=== PATIENT | female | born 1930 | race Caucasian/White ===

== ENCOUNTER 2019-02-26 10:25 | Inpatient (IN) ==
[2019-02-26 11:21] LABS: Basophils # 0.1 10*3/uL (0.0-0.2); Basophils % 0.4 % (0.0-0.8); Eosinophils % 0.1 % (0.00-10.9); Hemoglobin 11.8 GM/DL (12.0-16.0); Immature Granulocytes % 2.4 %; Immature Granulocytes Absolute 0.44 #; Lymphocytes % 11.1 % (21.3-54.2); Mean Corpuscular HGB Conc 30.3 GM/DL (32-36); Mean Corpuscular Volume 101.3 FL (87-102); Mean Platelet Volume 10.4 FL (9.6-12.0); Platelet Count 334 T/CUMM (130-400); Red Blood Count 3.85 MC/CUMM (3.8-5.5); White Blood Count 18.1 T/CUMM (4-12)
[2019-02-26 11:37] LABS: Alanine Aminotransferase 41 U/L (13-56); Albumin 2.2 G/DL (3.4-5.0); Alkaline Phosphatase 107 U/L (45-117); Aspartate Amino Transferase 83 U/L (0-37); Bilirubin,Total < 0.39 MG/DL (0.2-1.0); Blood Urea Nitrogen 31 MG/DL (7-18); Calcium 8.3 MG/DL (8.5-10.1); Glucose 118 MG/DL (74-106); Total Protein 6.6 G/DL (6.4-8.3)
[2019-02-26] MEDS ORDERED: SODIUM CHLORIDE 0.9% 1,000 ML IV STA (12:24)
[2019-02-26] MEDS ORDERED: cefTRIAXone 1,000 MG in SODIUM CHLORIDE 0.9% 100 ML IV STA (12:26)
[2019-02-26] MEDS ORDERED: DOCUSATE SODIUM 100 MG CAPSULE PO PRN (14:31)
[2019-02-26] MEDS ORDERED: ACETAMINOPHEN 325 MG TABLET PO PRN (14:31)
[2019-02-26] MEDS ORDERED: ONDANSETRON 4 MG/2 ML VIAL IV PRN (14:31)
[2019-02-26 14:33] LABS: Apearance,Urine CLEAR (Clear); Bilirubin,Urine Negative (Negative); Blood, Urine Small mg/dL (Negative); Glucose,Urine (UA) Negative (Negative); Ketones,Urine 20 mg/dL (Negative); Mucus,Urine Occasional /LPF (Occasional); Nitrite,Urine Negative (Negative); Protein,Urine 30 MG/DL; RBC,Urine 9 /HPF (0-4); Squamous Epithelial Cell,Urine Occasional /HPF (0-10); Urine Color Yellow (Yellow); Urine Specific Gravity 1.017 (1.001-1.035); Urine Urobilinogen < 2.0 EU/DL (0.2-1.0); WBC,Urine 3 /HPF (0-6)
[2019-02-26] MEDS ORDERED: ALBUTEROL/IPRATROPIUM 3 ML NEB RESP TX PRN (15:54)
[2019-02-26] MEDS: PIPERACILLIN/TAZOBACTAM 3,375 MG in SODIUM CHLORIDE 0.9% 100 ML IV SCH (18:37)
[2019-02-26] MEDS: DEXTROSE 5% NACL 0.9% 1,000 ML IV SCH (18:37)
[2019-02-26] MEDS: ENOXAPARIN 30 MG/0.3 ML SYRINGE SUBCUT SCH (18:37)
[2019-02-26] MEDS ORDERED: traZODone 50 MG TABLET PO PRN (21:00)
[2019-02-27] MEDS: PIPERACILLIN/TAZOBACTAM 3,375 MG in SODIUM CHLORIDE 0.9% 100 ML IV SCH ×3 (01:20→16:12)
[2019-02-27 05:09] LABS: Basophils # 0.1 10*3/uL (0.0-0.2); Basophils % 0.3 % (0.0-0.8); Eosinophils # 0.1 10*3/uL (0.0-0.87); Eosinophils % 0.4 % (0.00-10.9); Hematocrit 33.8 VOL% (35.7-47.0); Hemoglobin 10.3 GM/DL (12.0-16.0); Immature Granulocytes % 2.6 %; Immature Granulocytes Absolute 0.45 #; Lymphocytes % 11.5 % (21.3-54.2); Mean Corpuscular HGB Conc 30.5 GM/DL (32-36); Mean Corpuscular Volume 99.7 FL (87-102); Mean Platelet Volume 10.5 FL (9.6-12.0); Monocytes % 5.9 % (1.7-12.7); Neutrophils % 79.3 % (38.7-73.9); Platelet Count 336 T/CUMM (130-400); Red Blood Count 3.39 MC/CUMM (3.8-5.5); Red Cell Distribution Width 15.9 % (9.3-17.3); White Blood Count 17.1 T/CUMM (4-12)
[2019-02-27 05:53] LABS: Calcium 8.4 MG/DL (8.5-10.1); Thyroid Stimulating Hormone 0.211 uIU/ml (0.358-3.74)
[2019-02-27] MEDS ORDERED: ACEBUTOLOL 400 MG CAPSULE PO SCH (09:00)
[2019-02-27] MEDS: MAGNESIUM OXIDE 400 MG TABLET PO SCH ×2 (09:58→21:20)
[2019-02-27] MEDS: DICYCLOMINE 10 MG CAPSULE PO SCH ×3 (09:58→21:20)
[2019-02-27] MEDS: CLOPIDOGREL 75 MG TABLET PO SCH (10:04)
[2019-02-27] MEDS: MEMANTINE 10 MG TABLET PO SCH ×2 (10:04→21:20)
[2019-02-27] MEDS: PANTOPRAZOLE 40 MG TABLET PO SCH (10:04)
[2019-02-27] MEDS: DEXTROSE 5% 1,000 ML IV SCH (12:41)
[2019-02-27] MEDS: DEXTROSE 5% NACL 0.9% 1,000 ML IV SCH ×2 (12:46→12:52)
[2019-02-27] MEDS: ACEBUTOLOL 200 MG CAPSULE PO SCH (16:12)
[2019-02-27] MEDS: ENOXAPARIN 30 MG/0.3 ML SYRINGE SUBCUT SCH (16:12)
[2019-02-27] MEDS: LISINOPRIL 20 MG TABLET PO SCH (21:20)
[2019-02-27] MEDS: DONEPEZIL 10 MG TABLET PO SCH (21:20)
[2019-02-28] MEDS: PIPERACILLIN/TAZOBACTAM 3,375 MG in SODIUM CHLORIDE 0.9% 100 ML IV SCH ×3 (00:52→17:29)
[2019-02-28 04:55] LABS: Basophils # 0.1 10*3/uL (0.0-0.2); Basophils % 0.5 % (0.0-0.8); Eosinophils # 0.3 10*3/uL (0.0-0.87); Hematocrit 31.5 VOL% (35.7-47.0); Hemoglobin 9.5 GM/DL (12.0-16.0); Immature Granulocytes % 2.9 %; Immature Granulocytes Absolute 0.38 #; Lymphocytes # 2.1 10*3/uL (1.4-4.0); Lymphocytes % 15.6 % (21.3-54.2); Mean Corpuscular HGB Conc 30.2 GM/DL (32-36); Mean Corpuscular Volume 99.7 FL (87-102); Mean Platelet Volume 10.2 FL (9.6-12.0); Monocytes % 5.8 % (1.7-12.7); Neutrophils % 73.2 % (38.7-73.9); Platelet Count 312 T/CUMM (130-400); Red Blood Count 3.16 MC/CUMM (3.8-5.5); Red Cell Distribution Width 15.8 % (9.3-17.3); White Blood Count 13.2 T/CUMM (4-12)
[2019-02-28 05:24] LABS: Calcium 7.8 MG/DL (8.5-10.1); Free T4 (Free Thyroxine) 1.13 NG/DL (0.76-1.46); Osmolality,Calculated 288.7 MOS/KG (273-304)
[2019-02-28] MEDS: ACEBUTOLOL 200 MG CAPSULE PO SCH ×2 (05:46→18:09)
[2019-02-28] MEDS: DEXTROSE 5% 1,000 ML IV SCH (06:22)
[2019-02-28] MEDS: amLODIPine 5 MG TABLET PO SCH (08:59)
[2019-02-28] MEDS: MEMANTINE 10 MG TABLET PO SCH ×2 (08:59→20:45)
[2019-02-28] MEDS: DICYCLOMINE 10 MG CAPSULE PO SCH ×3 (08:59→20:45)
[2019-02-28] MEDS: MAGNESIUM OXIDE 400 MG TABLET PO SCH ×2 (08:59→20:45)
[2019-02-28] MEDS: CLOPIDOGREL 75 MG TABLET PO SCH (08:59)
[2019-02-28] MEDS: LORATADINE 10 MG TABLET PO SCH (08:59)
[2019-02-28] MEDS: PANTOPRAZOLE 40 MG TABLET PO SCH (09:00)
[2019-02-28] MEDS: DEXTROSE 5% NACL 0.45% 1,000 ML IV SCH (14:24)
[2019-02-28] MEDS: POTASSIUM CHLORIDE 20 MEQ TABLET PO PRN ×4 (14:24→20:45)
[2019-02-28] MEDS: ENOXAPARIN 30 MG/0.3 ML SYRINGE SUBCUT SCH (14:24)
[2019-02-28] MEDS: DONEPEZIL 10 MG TABLET PO SCH (20:45)
[2019-02-28] MEDS: LISINOPRIL 20 MG TABLET PO SCH (20:45)
[2019-03-01] MEDS: PIPERACILLIN/TAZOBACTAM 3,375 MG in SODIUM CHLORIDE 0.9% 100 ML IV SCH ×2 (00:56→10:30)
[2019-03-01 02:47] LABS: Basophils # 0.1 10*3/uL (0.0-0.2); Basophils % 0.5 % (0.0-0.8); Eosinophils # 0.3 10*3/uL (0.0-0.87); Eosinophils % 3.5 % (0.00-10.9); Hematocrit 30.2 VOL% (35.7-47.0); Hemoglobin 9.5 GM/DL (12.0-16.0); Immature Granulocytes % 3.6 %; Immature Granulocytes Absolute 0.35 #; Lymphocytes # 2.2 10*3/uL (1.4-4.0); Lymphocytes % 22.2 % (21.3-54.2); Mean Corpuscular HGB Conc 31.5 GM/DL (32-36); Mean Corpuscular Volume 98.4 FL (87-102); Mean Platelet Volume 10.4 FL (9.6-12.0); Monocytes % 7.5 % (1.7-12.7); Neutrophils % 62.7 % (38.7-73.9); Platelet Count 303 T/CUMM (130-400); Red Blood Count 3.07 MC/CUMM (3.8-5.5); Red Cell Distribution Width 15.6 % (9.3-17.3); White Blood Count 9.8 T/CUMM (4-12)
[2019-03-01 02:56] LABS: Calcium 7.6 MG/DL (8.5-10.1)
[2019-03-01 03:15] LABS: Band Neutrophils 4 % (0-10); Eosinophils 2 % (0-10); Lymphocytes 23 % (20-55); Segmented Neutrophils 63 % (50-85); Total Cells Counted 100
[2019-03-01 03:16] LABS: Anisocytosis 1+; Hypochromasia 1+; Platelet Estimate Normal
[2019-03-01] MEDS: ACEBUTOLOL 200 MG CAPSULE PO SCH ×2 (05:36→16:00)
[2019-03-01] MEDS: DEXTROSE 5% NACL 0.45% 1,000 ML IV SCH (09:22)
[2019-03-01] MEDS: LORATADINE 10 MG TABLET PO SCH (10:30)
[2019-03-01] MEDS: DICYCLOMINE 10 MG CAPSULE PO SCH ×3 (10:30→22:09)
[2019-03-01] MEDS: MAGNESIUM OXIDE 400 MG TABLET PO SCH ×2 (10:30→22:09)
[2019-03-01] MEDS: MEMANTINE 10 MG TABLET PO SCH ×2 (10:30→22:10)
[2019-03-01] MEDS: amLODIPine 5 MG TABLET PO SCH (10:30)
[2019-03-01] MEDS: PANTOPRAZOLE 40 MG TABLET PO SCH (10:30)
[2019-03-01] MEDS: CLOPIDOGREL 75 MG TABLET PO SCH (10:30)
[2019-03-01] MEDS: ENOXAPARIN 30 MG/0.3 ML SYRINGE SUBCUT SCH (15:57)
[2019-03-01] MEDS ORDERED: MIRTAZAPINE 15 MG TABLET PO SCH (21:00)
[2019-03-01] MEDS: AMOXICILLIN/CLAV 500 MG TABLET PO SCH (22:09)
[2019-03-01] MEDS: DONEPEZIL 10 MG TABLET PO SCH (22:09)
[2019-03-01] MEDS: LISINOPRIL 20 MG TABLET PO SCH (22:10)
[2019-03-02] MEDS: ACEBUTOLOL 200 MG CAPSULE PO SCH (05:52)
[2019-03-02 07:20] VITALS: BP 172/66
[2019-03-02] MEDS: MAGNESIUM OXIDE 400 MG TABLET PO SCH (08:54)
[2019-03-02] MEDS: CLOPIDOGREL 75 MG TABLET PO SCH (08:54)
[2019-03-02] MEDS: DICYCLOMINE 10 MG CAPSULE PO SCH (08:54)
[2019-03-02] MEDS: amLODIPine 5 MG TABLET PO SCH (08:55)
[2019-03-02] MEDS: PANTOPRAZOLE 40 MG TABLET PO SCH (08:55)
[2019-03-02] MEDS: AMOXICILLIN/CLAV 500 MG TABLET PO SCH (08:55)
[2019-03-02] MEDS: LORATADINE 10 MG TABLET PO SCH (08:55)
[2019-03-02] MEDS: MEMANTINE 10 MG TABLET PO SCH (08:55)
== END 2019-03-02 10:43 | DRG 193 ==
LOC: N.ED 10:25 → N.EDINP 14:31 → N.2E 17:48
PROVIDERS: ADMIT Internal Medicine; ATTEND Internal Medicine

== ENCOUNTER 2019-03-28 22:51 | Inpatient (IN) ==
[2019-03-28] MEDS ORDERED: SODIUM CHLORIDE 0.9% 1,000 ML IV STA (23:56)
[2019-03-28] MEDS ORDERED: ONDANSETRON 4 MG/2 ML VIAL IV STA (23:56)
[2019-03-29 00:13] LABS: Basophils # 0.1 10*3/uL (0.0-0.2); Basophils % 0.4 % (0.0-0.8); Eosinophils % 0.1 % (0.00-10.9); Hematocrit 39.2 VOL% (35.7-47.0); Immature Granulocytes % 0.6 %; Immature Granulocytes Absolute 0.08 #; Lymphocytes # 2.2 10*3/uL (1.4-4.0); Lymphocytes % 15.9 % (21.3-54.2); Mean Corpuscular HGB Conc 30.6 GM/DL (32-36); Mean Platelet Volume 10.1 FL (9.6-12.0); Monocytes % 2.8 % (1.7-12.7); Neutrophils % 80.2 % (38.7-73.9); Platelet Count 309 T/CUMM (130-400); Red Cell Distribution Width 18.1 % (9.3-17.3); White Blood Count 14.1 T/CUMM (4-12)
[2019-03-29 00:35] LABS: Albumin 3.3 G/DL (3.4-5.0); Bilirubin,Total 0.4 MG/DL (0.2-1.0); Calcium 8.3 MG/DL (8.5-10.1); Osmolality,Calculated 300.1 MOS/KG (273-304); Total Protein 7.3 G/DL (6.4-8.3)
[2019-03-29 02:00] LABS: Apearance,Urine Slightly Hazy (Clear); Bilirubin,Urine Negative (Negative); Blood, Urine Negative (Negative); Glucose,Urine (UA) Negative (Negative); Hyaline Casts,Urine 55 /LPF (0-3); Ketones,Urine 20 mg/dL (Negative); Mucus,Urine Occasional /LPF (Occasional); Nitrite,Urine Negative (Negative); Protein,Urine 30 MG/DL; RBC,Urine 4 /HPF (0-4); Squamous Epithelial Cell,Urine Occasional /HPF (0-10); Urine Color Amber (Yellow); Urine Specific Gravity 1.023 (1.001-1.035); WBC,Urine 18 /HPF (0-6)
[2019-03-29] MEDS ORDERED: BISACODYL 5 MG TABLET PO PRN (02:07)
[2019-03-29] MEDS ORDERED: SODIUM POLYSTYRENE SULFATE 15 GM/60 ML BOTTLE PO ONE (02:07)
[2019-03-29] MEDS ORDERED: ACETAMINOPHEN 325 MG TABLET PO PRN (02:07)
[2019-03-29] MEDS ORDERED: ONDANSETRON 4 MG/2 ML VIAL IV PRN (02:07)
[2019-03-29] MEDS ORDERED: SODIUM CHLORIDE 0.9% 1,000 ML IV SCH (02:30)
[2019-03-29 05:03] LABS: Basophils % 0.3 % (0.0-0.8); Hematocrit 36.7 VOL% (35.7-47.0); Immature Granulocytes % 0.6 %; Immature Granulocytes Absolute 0.08 #; Lymphocytes # 2.2 10*3/uL (1.4-4.0); Lymphocytes % 16.7 % (21.3-54.2); Mean Corpuscular Volume 100.8 FL (87-102); Mean Platelet Volume 9.9 FL (9.6-12.0); Monocytes % 2.9 % (1.7-12.7); Neutrophils % 79.5 % (38.7-73.9); Platelet Count 282 T/CUMM (130-400); Red Blood Count 3.64 MC/CUMM (3.8-5.5); Red Cell Distribution Width 18.4 % (9.3-17.3)
[2019-03-29 05:33] LABS: Bilirubin,Total 0.4 MG/DL (0.2-1.0); Osmolality,Calculated 305.7 MOS/KG (273-304); Total Protein 6.6 G/DL (6.4-8.3)
[2019-03-29] MEDS ORDERED: DICYCLOMINE 10 MG CAPSULE PO SCH (09:00)
[2019-03-29] MEDS: CLOPIDOGREL 75 MG TABLET PO SCH (09:27)
[2019-03-29] MEDS: amLODIPine 5 MG TABLET PO SCH (09:27)
[2019-03-29] MEDS: MEMANTINE 10 MG TABLET PO SCH (09:27)
[2019-03-29] MEDS: MAGNESIUM OXIDE 400 MG TABLET PO SCH (09:27)
[2019-03-29] MEDS: ACEBUTOLOL 200 MG CAPSULE PO SCH (09:28)
[2019-03-29] MEDS: DEXTROSE 5% NACL 0.45% 1,000 ML IV SCH ×2 (12:57→21:13)
[2019-03-29] MEDS ORDERED: hydrALAZINE 20 MG/1 ML VIAL IV PRN (14:52)
[2019-03-29] MEDS: METOCLOPRAMIDE 10 MG/2 ML VIAL IV SCH ×2 (15:59→21:13)
[2019-03-29] MEDS ORDERED: LISINOPRIL 20 MG TABLET PO SCH (21:00)
[2019-03-29] MEDS ORDERED: DONEPEZIL 10 MG TABLET PO SCH (21:00)
[2019-03-30] MEDS: DEXTROSE 5% NACL 0.45% 1,000 ML IV SCH ×4 (04:01→21:40)
[2019-03-30 05:15] LABS: Calcium 7.2 MG/DL (8.5-10.1); Osmolality,Calculated 304.7 MOS/KG (273-304)
[2019-03-30] MEDS: METOCLOPRAMIDE 10 MG/2 ML VIAL IV SCH ×3 (07:08→21:42)
[2019-03-30] MEDS ORDERED: FAMOTIDINE INJ 40 MG in SODIUM CHLORIDE 0.9% 100 ML IV SCH (11:00)
[2019-03-30] MEDS: FAMOTIDINE 20 MG/2 ML VIAL IV SCH (12:28)
[2019-03-31 05:27] LABS: Osmolality,Calculated 283.7 MOS/KG (273-304)
[2019-03-31] MEDS: DEXTROSE 5% NACL 0.45% 1,000 ML IV SCH ×2 (06:05→15:43)
[2019-03-31] MEDS: METOCLOPRAMIDE 10 MG/2 ML VIAL IV SCH ×3 (06:24→21:33)
[2019-03-31] MEDS: FAMOTIDINE 20 MG/2 ML VIAL IV SCH (12:21)
[2019-04-01] MEDS: DEXTROSE 5% NACL 0.45% 1,000 ML IV SCH ×3 (00:49→16:50)
[2019-04-01] MEDS: METOCLOPRAMIDE 10 MG/2 ML VIAL IV SCH (05:18)
[2019-04-01 05:35] LABS: Calcium 7.7 MG/DL (8.5-10.1); Osmolality,Calculated 288.8 MOS/KG (273-304)
[2019-04-01] MEDS: amLODIPine 5 MG TABLET PO SCH (09:16)
[2019-04-01] MEDS: POTASSIUM BICARB EFFERVESCENT 25 MEQ TABLET PO SCH ×2 (09:16→21:43)
[2019-04-01] MEDS: ACEBUTOLOL 200 MG CAPSULE PO SCH ×2 (09:16→21:42)
[2019-04-01] MEDS: CLOPIDOGREL 75 MG TABLET PO SCH (09:16)
[2019-04-01] MEDS: MAGNESIUM OXIDE 400 MG TABLET PO SCH ×2 (09:16→21:42)
[2019-04-01] MEDS: MEMANTINE 10 MG TABLET PO SCH ×2 (09:16→21:42)
[2019-04-01] MEDS: FAMOTIDINE 20 MG/2 ML VIAL IV SCH (11:26)
[2019-04-01] MEDS: POTASSIUM CHLORIDE RIDER 20 MEQ in PREMIX 1 EACH IV PRN ×2 (11:28→13:49)
[2019-04-01] MEDS: DICYCLOMINE 10 MG CAPSULE PO SCH (21:45)
[2019-04-02] MEDS: DEXTROSE 5% NACL 0.45% 1,000 ML IV SCH ×2 (04:05→15:40)
[2019-04-02] MEDS: DICYCLOMINE 10 MG CAPSULE PO SCH (08:57)
[2019-04-02] MEDS: POTASSIUM BICARB EFFERVESCENT 25 MEQ TABLET PO SCH (08:58)
[2019-04-02] MEDS: CLOPIDOGREL 75 MG TABLET PO SCH (08:58)
[2019-04-02] MEDS: MEMANTINE 10 MG TABLET PO SCH (08:58)
[2019-04-02] MEDS: amLODIPine 5 MG TABLET PO SCH (08:58)
[2019-04-02] MEDS: MAGNESIUM OXIDE 400 MG TABLET PO SCH (08:58)
[2019-04-02] MEDS: ACEBUTOLOL 200 MG CAPSULE PO SCH (09:02)
[2019-04-02] MEDS: FAMOTIDINE 20 MG/2 ML VIAL IV SCH (11:46)
[2019-04-02 16:07] VITALS: BP 148/66
== END 2019-04-02 15:59 | DRG 683 ==
LOC: EDUNIT# → EDBD → N.ED 22:51 → N.EDINP 22:51 → SUATTDRO 03-29 02:07 → N.5E 03-29 02:59
PROVIDERS: ADMIT Internal Medicine; ATTEND Internal Medicine

== ENCOUNTER 2019-07-07 11:25 | Inpatient (IN) ==
[2019-07-07] MEDS ORDERED: SODIUM CHLORIDE 0.9% 1,000 ML IV STA (12:16)
[2019-07-07 12:47] LABS: Basophils # 0.1 10*3/uL (0.0-0.2); Basophils % 0.6 % (0.0-0.8); Eosinophils # 0.7 10*3/uL (0.0-0.87); Eosinophils % 6.4 % (0.00-10.9); Hematocrit 34.2 VOL% (35.7-47.0); Immature Granulocytes % 0.7 %; Immature Granulocytes Absolute 0.07 #; Lymphocytes # 3.7 10*3/uL (1.4-4.0); Lymphocytes % 34.9 % (21.3-54.2); Mean Corpuscular HGB Conc 32.2 GM/DL (32-36); Mean Corpuscular Volume 103.6 FL (87-102); Mean Platelet Volume 10.5 FL (9.6-12.0); Monocytes % 8.6 % (1.7-12.7); Neutrophils % 48.8 % (38.7-73.9); Platelet Count 218 T/CUMM (130-400); Red Cell Distribution Width 20.1 % (9.3-17.3); White Blood Count 10.5 T/CUMM (4-12)
[2019-07-07 13:07] LABS: Albumin 2.4 G/DL (3.4-5.0); Bilirubin,Total 0.4 MG/DL (0.2-1.0); Calcium 7.8 MG/DL (8.5-10.1); Osmolality,Calculated 300.1 MOS/KG (273-304); Total Protein 5.5 G/DL (6.4-8.3)
[2019-07-07 14:08] LABS: Apearance,Urine CLOUDY (Clear); Bacteria,Urine Moderate /HPF (Few); Bilirubin,Urine Negative (Negative); Blood, Urine Moderate mg/dL (Negative); Glucose,Urine (UA) Negative (Negative); Hyaline Casts,Urine 33 /LPF (0-3); Ketones,Urine 5 mg/dL (Negative); Nitrite,Urine Negative (Negative); Protein,Urine 30 MG/DL; RBC,Urine 36 /HPF (0-4); Squamous Epithelial Cell,Urine Occasional /HPF (0-10); Urine Urobilinogen < 2.0 EU/DL (0.2-1.0); WBC,Urine 1023 /HPF (0-6)
[2019-07-07 14:09] LABS: Urine Color Yellow (Yellow)
[2019-07-07] MEDS ORDERED: cefTRIAXone 1,000 MG VIAL IM STA (16:28)
[2019-07-07] MEDS ORDERED: cefTRIAXone 1,000 MG in SODIUM CHLORIDE 0.9% 100 ML IV STA (16:45)
[2019-07-07] MEDS ORDERED: ONDANSETRON 4 MG/2 ML VIAL IV PRN (17:59)
[2019-07-07] MEDS ORDERED: CIPROFLOXACIN INJ 400 MG in PREMIX 1 EACH IV SCH (21:00)
[2019-07-07] MEDS: MIRTAZAPINE 15 MG TABLET PO SCH (22:46)
[2019-07-07] MEDS: DICYCLOMINE 10 MG CAPSULE PO SCH (22:46)
[2019-07-07] MEDS: SODIUM CHLORIDE 0.9% 1,000 ML IV SCH (22:47)
[2019-07-08] MEDS: SODIUM CHLORIDE 0.9% 1,000 ML IV SCH ×3 (03:01→17:34)
[2019-07-08 04:43] LABS: Basophils # 0.1 10*3/uL (0.0-0.2); Basophils % 0.6 % (0.0-0.8); Eosinophils # 0.7 10*3/uL (0.0-0.87); Eosinophils % 7.5 % (0.00-10.9); Hematocrit 31.7 VOL% (35.7-47.0); Hemoglobin 9.7 GM/DL (12.0-16.0); Immature Granulocytes % 0.8 %; Immature Granulocytes Absolute 0.08 #; Lymphocytes # 3.5 10*3/uL (1.4-4.0); Lymphocytes % 35.6 % (21.3-54.2); Mean Corpuscular HGB Conc 30.6 GM/DL (32-36); Mean Platelet Volume 10.5 FL (9.6-12.0); Monocytes % 9.9 % (1.7-12.7); Neutrophils % 45.6 % (38.7-73.9); Platelet Count 191 T/CUMM (130-400); Red Blood Count 2.99 MC/CUMM (3.8-5.5); Red Cell Distribution Width 20.5 % (9.3-17.3); White Blood Count 9.8 T/CUMM (4-12)
[2019-07-08 05:20] LABS: Calcium 7.4 MG/DL (8.5-10.1); Osmolality,Calculated 296.3 MOS/KG (273-304)
[2019-07-08] MEDS: DICYCLOMINE 10 MG CAPSULE PO SCH ×3 (06:04→20:29)
[2019-07-08] MEDS: CLOPIDOGREL 75 MG TABLET PO SCH (10:51)
[2019-07-08] MEDS: MEMANTINE 10 MG TABLET PO SCH ×2 (10:51→17:34)
[2019-07-08] MEDS: CYPROHEPTADINE 4 MG TABLET PO SCH ×3 (10:52→15:41)
[2019-07-08] MEDS: PANTOPRAZOLE 40 MG TABLET PO SCH (10:52)
[2019-07-08] MEDS: MIRTAZAPINE 15 MG TABLET PO SCH (20:29)
[2019-07-09] MEDS: SODIUM CHLORIDE 0.9% 1,000 ML IV SCH ×3 (01:10→22:38)
[2019-07-09] MEDS: DICYCLOMINE 10 MG CAPSULE PO SCH ×3 (05:14→20:19)
[2019-07-09 06:17] LABS: Basophils # 0.1 10*3/uL (0.0-0.2); Eosinophils # 0.6 10*3/uL (0.0-0.87); Eosinophils % 6.3 % (0.00-10.9); Hematocrit 30.2 VOL% (35.7-47.0); Hemoglobin 9.5 GM/DL (12.0-16.0); Immature Granulocytes % 1.5 %; Immature Granulocytes Absolute 0.14 #; Lymphocytes # 3.6 10*3/uL (1.4-4.0); Lymphocytes % 38.7 % (21.3-54.2); Mean Corpuscular HGB Conc 31.5 GM/DL (32-36); Mean Corpuscular Volume 102.4 FL (87-102); Mean Platelet Volume 10.1 FL (9.6-12.0); Monocytes % 9.3 % (1.7-12.7); Neutrophils % 43.2 % (38.7-73.9); Platelet Count 201 T/CUMM (130-400); Red Blood Count 2.95 MC/CUMM (3.8-5.5); Red Cell Distribution Width 20.2 % (9.3-17.3); White Blood Count 9.2 T/CUMM (4-12)
[2019-07-09 06:38] LABS: Calcium 7.2 MG/DL (8.5-10.1); Osmolality,Calculated 296.7 MOS/KG (273-304)
[2019-07-09] MEDS: ACETAMINOPHEN 325 MG TABLET PO PRN ×2 (07:03→20:19)
[2019-07-09] MEDS: CYPROHEPTADINE 4 MG TABLET PO SCH ×3 (09:05→16:43)
[2019-07-09] MEDS: MEMANTINE 10 MG TABLET PO SCH ×2 (09:05→16:43)
[2019-07-09] MEDS: PANTOPRAZOLE 40 MG TABLET PO SCH (09:05)
[2019-07-09] MEDS: CLOPIDOGREL 75 MG TABLET PO SCH (09:05)
[2019-07-09] MEDS: MIRTAZAPINE 15 MG TABLET PO SCH (20:20)
[2019-07-10] MEDS: DICYCLOMINE 10 MG CAPSULE PO SCH ×2 (05:28→14:14)
[2019-07-10 06:11] LABS: Basophils # 0.1 10*3/uL (0.0-0.2); Basophils % 0.8 % (0.0-0.8); Eosinophils # 0.5 10*3/uL (0.0-0.87); Hemoglobin 9.9 GM/DL (12.0-16.0); Immature Granulocytes % 1.3 %; Lymphocytes # 3.2 10*3/uL (1.4-4.0); Lymphocytes % 40.8 % (21.3-54.2); Mean Corpuscular HGB Conc 31.9 GM/DL (32-36); Mean Corpuscular Volume 101.6 FL (87-102); Mean Platelet Volume 10.1 FL (9.6-12.0); Monocytes % 8.8 % (1.7-12.7); Neutrophils % 42.3 % (38.7-73.9); Platelet Count 198 T/CUMM (130-400); Red Blood Count 3.05 MC/CUMM (3.8-5.5); Red Cell Distribution Width 19.9 % (9.3-17.3); White Blood Count 7.9 T/CUMM (4-12)
[2019-07-10 06:40] LABS: Calcium 7.1 MG/DL (8.5-10.1); Osmolality,Calculated 294.6 MOS/KG (273-304)
[2019-07-10] MEDS: SODIUM CHLORIDE 0.9% 1,000 ML IV SCH ×2 (06:40→10:27)
[2019-07-10] MEDS ORDERED: POTASSIUM CHLORIDE 20 MEQ TABLET PO ONE (07:35)
[2019-07-10] MEDS: PANTOPRAZOLE 40 MG TABLET PO SCH (08:48)
[2019-07-10] MEDS: CLOPIDOGREL 75 MG TABLET PO SCH (08:48)
[2019-07-10] MEDS: MEMANTINE 10 MG TABLET PO SCH (08:48)
[2019-07-10] MEDS: CYPROHEPTADINE 4 MG TABLET PO SCH ×2 (08:48→12:11)
[2019-07-10] MEDS: ACETAMINOPHEN 325 MG TABLET PO PRN (11:26)
[2019-07-10 12:15] VITALS: BP 132/75
== END 2019-07-10 14:40 | DRG 684 ==
LOC: EDBD → EDUNIT# → N.ED 11:25 → N.EDINP 17:59 → N.5E 19:36
PROVIDERS: ADMIT Internal Medicine Geriatric Medicine; ATTEND Internal Medicine Geriatric Medicine

== ENCOUNTER 2019-08-13 18:58 | Inpatient (IN) ==
[2019-08-13] MEDS ORDERED: LACTATED RINGERS 500 ML IV ONE (19:40)
[2019-08-13 20:08] LABS: Basophils % 0.2 % (0.0-0.8); Hematocrit 33.4 VOL% (35.7-47.0); Hemoglobin 10.7 GM/DL (12.0-16.0); Immature Granulocytes % 0.9 %; Immature Granulocytes Absolute 0.12 #; Lymphocytes # 2.3 10*3/uL (1.4-4.0); Lymphocytes % 16.5 % (21.3-54.2); Mean Corpuscular Volume 102.1 FL (87-102); Monocytes % 5.8 % (1.7-12.7); Neutrophils % 76.6 % (38.7-73.9); Platelet Count 362 T/CUMM (130-400); Red Blood Count 3.27 MC/CUMM (3.8-5.5); Red Cell Distribution Width 21.1 % (9.3-17.3); White Blood Count 14.1 T/CUMM (4-12)
[2019-08-13 20:30] LABS: Apearance,Urine CLOUDY (Clear); Bacteria,Urine Few /HPF (Few); Bilirubin,Urine Negative (Negative); Blood, Urine Negative (Negative); Glucose,Urine (UA) Negative (Negative); Hyaline Casts,Urine 13 /LPF (0-3); Ketones,Urine 5 mg/dL (Negative); Mucus,Urine Occasional /LPF (Occasional); Nitrite,Urine Negative (Negative); Protein,Urine 30 MG/DL; RBC,Urine 29 /HPF (0-4); Squamous Epithelial Cell,Urine Occasional /HPF (0-10); Urine Color Amber (Yellow); Urine Specific Gravity 1.017 (1.001-1.035); WBC,Urine 242 /HPF (0-6)
[2019-08-13] MEDS ORDERED: cefTRIAXone 1,000 MG in SODIUM CHLORIDE 0.9% 100 ML IV STA (20:38)
[2019-08-13 20:44] LABS: Bilirubin,Total 0.5 MG/DL (0.2-1.0); Calcium 8.1 MG/DL (8.5-10.1); Total Protein 5.7 G/DL (6.4-8.3)
[2019-08-13] MEDS ORDERED: ONDANSETRON 4 MG/2 ML VIAL IV PRN (23:13)
[2019-08-13] MEDS ORDERED: SODIUM CHLORIDE 0.9% 1,000 ML IV SCH (23:13)
[2019-08-13] MEDS ORDERED: ACETAMINOPHEN 325 MG TABLET PO PRN (23:13)
[2019-08-14] MEDS: MEROPENEM 500 MG in SODIUM CHLORIDE 0.9% 100 ML IV SCH ×3 (00:06→22:49)
[2019-08-14] MEDS: DEXTROSE 5% NACL 0.45% 1,000 ML IV SCH ×4 (00:07→22:40)
[2019-08-14] MEDS ORDERED: SODIUM CHLORIDE 0.9% 500 ML IV ONE (00:42)
[2019-08-14 05:56] LABS: Basophils % 0.3 % (0.0-0.8); Eosinophils % 0.1 % (0.00-10.9); Hematocrit 29.7 VOL% (35.7-47.0); Hemoglobin 9.4 GM/DL (12.0-16.0); Immature Granulocytes % 1.1 %; Immature Granulocytes Absolute 0.13 #; Lymphocytes # 2.1 10*3/uL (1.4-4.0); Lymphocytes % 18.5 % (21.3-54.2); Mean Corpuscular HGB Conc 31.6 GM/DL (32-36); Mean Corpuscular Volume 103.1 FL (87-102); Monocytes % 7.1 % (1.7-12.7); Neutrophils % 72.9 % (38.7-73.9); Platelet Count 288 T/CUMM (130-400); Red Blood Count 2.88 MC/CUMM (3.8-5.5); Red Cell Distribution Width 21.1 % (9.3-17.3); White Blood Count 11.5 T/CUMM (4-12)
[2019-08-14 06:20] LABS: Calcium 7.6 MG/DL (8.5-10.1); Osmolality,Calculated 318.9 MOS/KG (273-304)
[2019-08-14 06:29] LABS: Folate 1.8 NG/ML (5.4-24.0)
[2019-08-14] MEDS ORDERED: ACETAMINOPHEN 500 MG TABLET PO PRN (11:23)
[2019-08-14] MEDS ORDERED: BISACODYL 5 MG TABLET PO PRN (11:23)
[2019-08-14] MEDS ORDERED: ACEBUTOLOL 400 MG CAPSULE PO SCH (11:30)
[2019-08-14] MEDS: CYPROHEPTADINE 4 MG TABLET PO SCH ×2 (13:27→18:20)
[2019-08-14] MEDS: DICYCLOMINE 10 MG CAPSULE PO SCH ×2 (13:28→22:27)
[2019-08-14] MEDS: FOLIC ACID 1 MG TABLET PO SCH (13:28)
[2019-08-14] MEDS: MAGNESIUM OXIDE 400 MG TABLET PO SCH (18:20)
[2019-08-14] MEDS: MEMANTINE 10 MG TABLET PO SCH (18:20)
[2019-08-14] MEDS: ACEBUTOLOL 200 MG CAPSULE PO SCH ×2 (22:36→22:55)
[2019-08-14] MEDS: DONEPEZIL 10 MG TABLET PO SCH (22:36)
[2019-08-15] MEDS: DEXTROSE 5% NACL 0.45% 1,000 ML IV SCH ×3 (03:24→16:50)
[2019-08-15 04:23] LABS: Basophils % 0.2 % (0.0-0.8); Eosinophils # 0.1 10*3/uL (0.0-0.87); Eosinophils % 0.9 % (0.00-10.9); Hematocrit 26.4 VOL% (35.7-47.0); Hemoglobin 8.4 GM/DL (12.0-16.0); Immature Granulocytes % 1.5 %; Immature Granulocytes Absolute 0.15 #; Lymphocytes # 2.4 10*3/uL (1.4-4.0); Lymphocytes % 24.3 % (21.3-54.2); Mean Corpuscular HGB Conc 31.8 GM/DL (32-36); Mean Platelet Volume 10.2 FL (9.6-12.0); Monocytes % 8.2 % (1.7-12.7); NRBC # 0.03 10*3/uL; Neutrophils % 64.9 % (38.7-73.9); Platelet Count 277 T/CUMM (130-400); Red Blood Count 2.64 MC/CUMM (3.8-5.5)
[2019-08-15 04:51] LABS: Calcium 6.9 MG/DL (8.5-10.1); Osmolality,Calculated 306.3 MOS/KG (273-304)
[2019-08-15] MEDS: DICYCLOMINE 10 MG CAPSULE PO SCH ×3 (05:47→20:38)
[2019-08-15] MEDS: MEMANTINE 10 MG TABLET PO SCH ×2 (09:06→17:50)
[2019-08-15] MEDS: MULTIVITAMIN (CENTRUM) TABLET PO SCH (09:06)
[2019-08-15] MEDS: MAGNESIUM OXIDE 400 MG TABLET PO SCH ×2 (09:06→16:52)
[2019-08-15] MEDS: FOLIC ACID 1 MG TABLET PO SCH (09:06)
[2019-08-15] MEDS: CYPROHEPTADINE 4 MG TABLET PO SCH ×3 (09:06→16:52)
[2019-08-15] MEDS: CLOPIDOGREL 75 MG TABLET PO SCH (09:07)
[2019-08-15] MEDS: ACEBUTOLOL 200 MG CAPSULE PO SCH ×2 (09:07→20:38)
[2019-08-15] MEDS: MEROPENEM 500 MG in SODIUM CHLORIDE 0.9% 100 ML IV SCH ×2 (14:36→23:13)
[2019-08-15] MEDS: DONEPEZIL 10 MG TABLET PO SCH (20:38)
[2019-08-16] MEDS: DEXTROSE 5% NACL 0.45% 1,000 ML IV SCH ×2 (02:45→10:23)
[2019-08-16] MEDS: DICYCLOMINE 10 MG CAPSULE PO SCH ×2 (05:16→15:39)
[2019-08-16 06:01] LABS: Calcium 6.8 MG/DL (8.5-10.1); Osmolality,Calculated 301.4 MOS/KG (273-304)
[2019-08-16] MEDS: CYPROHEPTADINE 4 MG TABLET PO SCH ×2 (10:00→11:58)
[2019-08-16] MEDS: FOLIC ACID 1 MG TABLET PO SCH (10:00)
[2019-08-16] MEDS: MULTIVITAMIN (CENTRUM) TABLET PO SCH (10:00)
[2019-08-16] MEDS: MAGNESIUM OXIDE 400 MG TABLET PO SCH (10:01)
[2019-08-16] MEDS: CLOPIDOGREL 75 MG TABLET PO SCH (10:01)
[2019-08-16] MEDS: ACEBUTOLOL 200 MG CAPSULE PO SCH (10:01)
[2019-08-16] MEDS: MEMANTINE 10 MG TABLET PO SCH (10:01)
[2019-08-16] MEDS: MEROPENEM 500 MG in SODIUM CHLORIDE 0.9% 100 ML IV SCH (10:18)
[2019-08-16 11:42] VITALS: BP 130/51
== END 2019-08-16 15:45 | disposition hospice, inpatient (51) | DRG 871 ==
LOC: EDBD → EDUNIT# → N.ED 18:58 → N.EDINP 21:45 → N.2E 22:26
PROVIDERS: ADMIT Internal Medicine; ATTEND Internal Medicine